=== PATIENT | female | born 1990 | race Caucasian/White ===

== ENCOUNTER → 2019-02-17 | Outpatient (CLI) | payer OTHER ==
[~2019-02-17] MED LIST: DOCU100C37 PO; IBUP-1780 PO; OXYC-465 PO; PNV91TAB3 PO
[2019-02-17 17:20] LABS: URINE CREATININE FOR RATIO 46 MG/DL (30-125); URINE PROTEIN FOR RATIO ONLY < 6 MG/DL (6-12)
== END ==
LOC: LABNPT 16:56
PROVIDERS: ATTEND Obstetrics & Gynecology
DX: O28.8 Other abnormal findings on antenatal screening of mother (principal)
CPT/HCPCS: 82570; 84156

== ENCOUNTER 2019-02-25 09:10 | Outpatient (CLI) | payer BC ==
[~2019-02-25] VITALS: Ht 167.6 cm; Wt 82.1 kg
[2019-02-25] MEDS ORDERED: PREN1TAB79 PO (09:20)
[2019-02-25] MEDS ORDERED: CETI10TA17 PO (09:20)
[2019-02-25] MEDS ORDERED: FLUT9.9S NS (09:20)
[2019-02-25 09:22] VITALS: BP 132/91
== END 2019-02-25 10:58 | disposition home or self-care (01) ==
LOC: PREOP 09:10
PROVIDERS: ATTEND Obstetrics & Gynecology
DX: Z01.818 Encounter for other preprocedural examination (principal)
CPT/HCPCS: 87081

== ENCOUNTER 2019-02-25 12:00 | Inpatient (IN) | payer BC, OTHER ==
[~2019-02-25] VITALS: Ht 167.6 cm; Wt 82.6 kg
[~2019-02-25 12:00] MED LIST changes: +CETI10TA17 PO; +FLUT9.9S NS; +PREN1TAB79 PO
[2019-03-04] VITALS (9 sets, daily range): BP systolic 100–138; BP diastolic 70–93
--- NOTE | 2019-03-04 10:09 | NUR ---
NOMAN IVY presented to unit via AMBULATORY from HOME, accompanied by S/O, with c/o REPEAT . NOMAN IVY weighed, gowned, voided, and to bed. EFHM and TOCO applied, VS taken. NOMAN IVY oriented to bed controls, call light, TV, heat, and A/C controls.
--- OUTSIDE RECORDS SUMMARY | 2019-03-04 10:39 | XMS REPORT | Continuity of Care Document ---
Author Organization Unknown Address Unknown Allergies Active Description Code Type Severity Reaction Onset Reported/Identified Relationship to Patient Clinical Status Yes NKANo Known Allergies NKA Miscellaneous Allergy Mild N/A 03/11/2006 Medications There is no data. Problems Date Dx Coded Attending Type Code Diagnosis Diagnosed By 02/29/2016 ANTHONY KIDD CUSTOMS VERIFIER Ot 789.00 ABDOMINAL PAIN, UNSPECIFIED SITE 02/29/2016 ANTHONY KIDD Ot 793.6 NOSP (ABN) FINDINGS ON RADIOLOGICAL OT 03/02/2016 HUMBERTO BANERJEE MD Ot O14.03 MILD TO MODERATE PRE-ECLAMPSIA, THIRD TR 03/22/2016 HUMBERTO BANERJEE MD Ot O14.03 MILD TO MODERATE PRE-ECLAMPSIA, THIRD TR 03/26/2016 HUMBERTO BANERJEE MD Ot O14.03 MILD TO MODERATE PRE-ECLAMPSIA, THIRD TR 03/27/2016 ANTHONY KIDD Ot 789.00 ABDOMINAL PAIN, UNSPECIFIED SITE 03/27/2016 ANTHONY KIDD Ot 793.6 NOSP (ABN) FINDINGS ON RADIOLOGICAL OT 03/27/2016 HUMBERTO BANERJEE MD Ot O14.03 MILD TO MODERATE PRE-ECLAMPSIA, THIRD TR 03/27/2016 HUMBERTO BANERJEE MD Ot O14.03 MILD TO MODERATE PRE-ECLAMPSIA, THIRD TR 03/28/2016 HUMBERTO BANERJEE MD Ot O28.8 OTHER ABNORMAL FINDINGS ON SCR 03/28/2016 HUMBERTO BANERJEE MD Ot Z3A.00 WEEKS OF GESTATION OF NOT SPEC 03/29/2016 HUMBERTO BANERJEE MD Ot O28.8 OTHER ABNORMAL FINDINGS ON SCR 03/29/2016 HUMBERTO BANERJEE MD, Ot Z3A.00 WEEKS OF GESTATION OF NOT SPEC 03/31/2016 HUMBERTO BANERJEE MD, Ot F41.9 ANXIETY DISORDER, UNSPECIFIED 03/31/2016 HUMBERTO BANERJEE MD, Ot O13.3 GESTATIONAL HTN W/O SIGNIFICANT PROTEINU 03/31/2016 HUMBERTO BANERJEE MD, Ot O32.4XX0 MATERNAL CARE FOR HIGH HEAD AT TERM, NOT 03/31/2016 HUMBERTO BANERJEE MD, Ot O63.0 PROLONGED FIRST STAGE (OF LABOR) 03/31/2016 HUMBERTO BANERJEE MD, Ot O65.4 OBSTRUCTED LABOR DUE TO FETOPELVIC DISPR 03/31/2016 HUMBERTO BANERJEE MD, Ot O99.345 OTHER MENTAL DISORDERS COMPLICATING THE 03/31/2016 HUMBERTO BANERJEE MD, Ot O99.824 STREPTOCOCCUS B CARRIER STATE COMPLICATI 03/31/2016 HUMBERTO BANERJEE MD, Ot Z37.0 SINGLE LIVE 03/31/2016 HUMBERTO BANERJEE MD, Ot Z3A.38 38 WEEKS GESTATION OF 04/11/2016 HUMBERTO BANERJEE MD, Ot O14.03 MILD TO MODERATE PRE-ECLAMPSIA, THIRD TR 04/17/2016 ANTHONY KIDD CUSTOMS VERIFIER Ot 789.00 ABDOMINAL PAIN, UNSPECIFIED SITE 04/17/2016 ANTHONY KIDD CUSTOMS VERIFIER Ot 793.6 NOSP (ABN) FINDINGS ON RADIOLOGICAL OT 04/17/2016 HUMBERTO BANERJEE MD, Ot O14.03 MILD TO MODERATE PRE-ECLAMPSIA, THIRD TR 04/17/2016 HUMBERTO BANERJEE MD, Ot O14.03 MILD TO MODERATE PRE-ECLAMPSIA, THIRD TR 04/17/2016 HUMBERTO BANERJEE MD, Ot O28.8 OTHER ABNORMAL FINDINGS ON SCR 04/17/2016 HUMBERTO BANERJEE MD, Ot Z3A.00 WEEKS OF GESTATION OF NOT SPEC 04/23/2016 HUMBERTO BANERJEE MD, Ot O28.8 OTHER ABNORMAL FINDINGS ON SCR 04/23/2016 HUMBERTO BANERJEE MD, Ot Z3A.00 WEEKS OF GESTATION OF NOT SPEC 04/26/2016 HUMBERTO BANERJEE MD, Ot O14.03 MILD TO MODERATE PRE-ECLAMPSIA, THIRD TR 06/04/2018 HUMBERTO BANERJEE MD, Ot O14.03 MILD TO MODERATE PRE-ECLAMPSIA, THIRD TR 06/04/2018 HUMBERTO BANERJEE MD, Ot O28.8 OTHER ABNORMAL FINDINGS ON SCR 06/04/2018 HUMBERTO BANERJEE MD, Ot Z3A.00 WEEKS OF GESTATION OF NOT SPEC 07/21/2018 VANLAMANTHONY KULKARNI M CUSTOMS VERIFIER Ot 789.00 ABDOMINAL PAIN, UNSPECIFIED SITE 07/21/2018 BENJY KIDDSA M CUSTOMS VERIFIER Ot 793.6 NOSP (ABN) FINDINGS ON RADIOLOGICAL OT 07/21/2018 HUMBERTO BANERJEE MD, Ot O14.03 MILD TO MODERATE PRE-ECLAMPSIA, THIRD TR 02/18/2019 HUMBERTO BANERJEE MD, Ot O28.8 OTHER ABNORMAL FINDINGS ON SCR 02/20/2019 HUMBERTO BANERJEE MD, Ot O28.8 OTHER ABNORMAL FINDINGS ON SCR 02/25/2019 HUMBERTO BANERJEE MD, Ot O14.03 MILD TO MODERATE PRE-ECLAMPSIA, THIRD TR 02/25/2019 HUMBERTO BANERJEE MD, Ot O28.8 OTHER ABNORMAL FINDINGS ON SCR 02/25/2019 HUMBERTO BANERJEE MD, Ot Z3A.00 WEEKS OF GESTATION OF NOT SPEC 02/25/2019 HUMBERTO BANERJEE MD, Ot O28.8 OTHER ABNORMAL FINDINGS ON SCR 03/02/2019 HUMBERTO BANERJEE MD, Ot Z01.818 ENCOUNTER FOR OTHER PREPROCEDURAL EXAMIN Procedures Code Description Performed By Performed On [id number] EXTRACTION OF POC, LOW CERVICAL, OPEN AP 03/29/2016 Results Test Result Range Urine protein/creatinine mass ratio - 03/23/16 09:33 Urine protein measurement (mass/volume) < mg/dL 6-12 Urine creatinine measurement (mass/volume) 39 mg/dL 30-125 Urine protein/creatinine mass ratio TNP NRG Urine protein/creatinine mass ratio - 03/27/16 14:44 Urine protein measurement (mass/volume) < mg/dL 6-12 Urine creatinine measurement (mass/volume) 24 mg/dL 30-125 Urine protein/creatinine mass ratio TNP [facility] [id number] - 03/27/16 15:35 [id number] SPECIMEN AVAILABLE [facility] Complete blood count (CBC) with automated white blood cell (WBC) differential - 03/29/16 15:20 Blood leukocytes automated count (number/volume) 19.2 10*3/uL 4.3-11.0 Blood erythrocytes automated count (number/volume) 3.35 10*6/uL 4.35-5.85 Venous blood hemoglobin measurement (mass/volume) 9.7 g/dL 11.5-16.0 Blood hematocrit (volume fraction) 28 % 35-52 Automated erythrocyte mean corpuscular volume 84 [foz_us] 80-99 Automated erythrocyte mean corpuscular hemoglobin (mass per erythrocyte) 29 pg 25-34 Automated erythrocyte mean corpuscular hemoglobin concentration measurement (mass/volume) 35 g/dL 32-36 Automated erythrocyte distribution width ratio 13.3 % 10.0- 14.5 Automated blood platelet count (count/volume) 190 10*3/uL 130-400 Automated blood platelet mean volume measurement 9.5 [foz_us] 7.4-10.4 Automated blood neutrophils/100 leukocytes 81 % 42-75 Automated blood lymphocytes/100 leukocytes 7 % 12-44 Blood monocytes/100 leukocytes 12 % 0-12 Automated blood eosinophils/100 leukocytes 0 % 0-10 Automated blood basophils/100 leukocytes 0 % 0-10 Blood neutrophils automated count (number/volume) 15.5 10*3 1.8-7.8 Blood lymphocytes automated count (number/volume) 1.4 10*3 1.0-4.0 Blood monocytes automated count (number/volume) 2.3 10*3 0.0- 1.0 Automated eosinophil count 0.0 10*3/uL 0.0-0.3 Automated blood basophil count (count/volume) 0.0 10*3/uL 0.0-0.1 Comprehensive metabolic panel - 03/29/16 15:20 Serum or plasma sodium measurement (moles/volume) 136 mmol/L 135-145 Serum or plasma potassium measurement (moles/volume) 4.0 mmol/L 3.6-5.0 Serum or plasma chloride measurement (moles/volume) 108 mmol/L 98-107 Carbon dioxide 25 mmol/L 21-32 Serum or plasma anion gap determination (moles/volume) 3 mmol/L 5-14 Serum or plasma urea nitrogen measurement (mass/volume) 4 mg/dL 7-18 Serum or plasma creatinine measurement (mass/volume) 0.61 mg/dL 0.60-1.30 Serum or plasma urea nitrogen/creatinine mass ratio 7 NRG Serum or plasma creatinine measurement with calculation of estimated glomerular filtration rate > NRG Serum or plasma glucose measurement (mass/volume) 96 mg/dL 70-105 Serum or plasma calcium measurement (mass/volume) 8.1 mg/dL 8.5-10.1 Serum or plasma total bilirubin measurement (mass/volume) 0.3 mg/dL 0.1-1.0 Serum or plasma alkaline phosphatase measurement (enzymatic activity/volume) 109 U/L 40-136 Serum or plasma aspartate aminotransferase measurement (enzymatic activity/volume) 55 U/L 5-34 Serum or plasma alanine aminotransferase measurement (enzymatic activity/volume) 26 U/L 0-55 Serum or plasma protein measurement (mass/volume) 4.9 g/dL 6.4-8.2 Serum or plasma albumin measurement (mass/volume) 2.7 g/dL 3.2-4.5 Blood manual differential performed detection - 03/29/16 15:20 Blood monocytes/100 leukocytes 2 % NRG Manual blood segmented neutrophils/100 leukocytes 82 % NRG Blood band neutrophils/100 leukocytes 2 % NRG Manual blood lymphocytes/100 leukocytes 14 % NRG Manual eosinophils/100 leukocytes in nose 0 % NRG Manual blood basophils/100 leukocytes 0 % NRG Blood ovalocytes detection by light microscopy SLIGHT NRG Urine protein/creatinine mass ratio - 02/17/19 16:37 Urine protein measurement (mass/volume) < mg/dL 6-12 Urine creatinine measurement (mass/volume) 46 mg/dL 30-125 Urine protein/creatinine mass ratio TNP NRG Methicillin resistant Staphylococcus aureus (MRSA) screening culture - 02/25/19 10:00 Methicillin resistant Staphylococcus aureus (MRSA) screening culture NEG NRG Encounters ACCT No. Visit Date/Time Discharge Status Pt. Type Provider Facility Loc./Unit Complaint [id number] 02/25/2019 12:00:00 02/25/2019 23:59:59 CLS Preadmit LAVONNE GARCIA, HUMBERTO Stark REPEAT [id number] 02/25/2019 09:10:00 02/25/2019 10:58:00 DIS Outpatient HUMBERTO BANERJEE MD [facility] PREOP REPEAT [id number] 02/17/2019 16:56:00 02/17/2019 23:59:59 CLS Outpatient HUMBERTO BANERJEE MD [facility] LABNPT [id number] 06/10/2018 09:00:00 06/10/2018 23:59:59 CLS Preadmit JEREMIAS GARCIA FACC, ALI FACP CCDS [facility] CARD PALPITATIONS [id number] 06/03/2018 08:30:00 06/03/2018 23:59:59 CLS Preadmit JEREMIAS GARCIA FACC, ALI FACP CCDS [facility] CARD PALPITATIONS [id number] 03/27/2016 15:23:00 03/31/2016 12:45:00 DIS Inpatient HUMBERTO BANERJEE MD [facility] LDRP ELEVATED BLOOD PRESSURE,LABOR [id number] 03/27/2016 15:11:00 03/27/2016 23:59:59 CLS Outpatient HUMBERTO BANERJEE MD [facility] LABT OTHER ABNORMAL FINDINGS ON SCREENING [id number] 03/23/2016 10:36:00 03/23/2016 23:59:59 CLS Outpatient HUMBERTO BANERJEE MD [facility] LABNPT MILD TO MODERATE PRE ECLAMPSIA, THIRD TRIMESTER [id number] 02/29/2016 10:48:00 02/29/2016 23:59:59 CLS Outpatient HUMBERTO BANERJEE MD [facility] LABNPT MILD TO MODERATE PRE ECLAMPSIA, THIRD TRIMESTER [id number] 11/17/2013 12:01:00 11/17/2013 23:59:59 CLS Outpatient ANTHONY KIDD [facility] RAD ABD PAIN, ACUTE
[2019-03-04] MEDS ORDERED: LACTATED RINGERS 1,000 ML IV ONE (10:42)
[2019-03-04] MEDS ORDERED: FAMOTIDINE 20MG/2ML IV (PEPCID) ONE (10:42)
[2019-03-04] MEDS ORDERED: CITRIC ACID/SOB CIT (BICITRA) 30 ML UDC ONE (10:42)
[2019-03-04] MEDS ORDERED: METOCLOPRAMIDE INJ 10 MG/2 ML (REGLAN) ONE (10:42)
[2019-03-04] MEDS ORDERED: metroNIDAZOLE 500MG/100ML IVPB 100 ML ONE (10:43)
[2019-03-04] MEDS ORDERED: METOCLOPRAMIDE INJ 10 MG/2 ML (REGLAN) IV ONE (10:45)
[2019-03-04] MEDS ORDERED: CITRIC ACID/SOB CIT (BICITRA) 30 ML UDC PO ONE (10:45)
[2019-03-04] MEDS ORDERED: ceFAZolin INJECTION 2,000 MG in WATER (STERILE) FOR INJECTION 10 ML IV NR (10:45)
[2019-03-04] MEDS ORDERED: CATHETER FLUSH 10 ML SYR IV PRN (10:45)
[2019-03-04] MEDS ORDERED: FAMOTIDINE 20MG/2ML IV (PEPCID) IV ONE (10:45)
[2019-03-04] MEDS ORDERED: metroNIDAZOLE 500MG/100ML IVPB 100 ML IV NR (10:45)
[2019-03-04 10:51] LABS: BASOPHILS % (AUTO) 0 % (0-10); EOSINOPHILS # (AUTO) 0.1 10^3/uL (0.0-0.3); EOSINOPHILS % (AUTO) 1 % (0-10); HEMATOCRIT 35 % (35-52); HEMOGLOBIN 12.1 G/DL (11.5-16.0); LYMPHOCYTES # (AUTO) 1.5 X 10^3 (1.0-4.0); LYMPHOCYTES % (AUTO) 15 % (12-44); MEAN CORPUSCULAR HEMOGLOBIN 29 PG (25-34); MEAN CORPUSCULAR HGB CONC 34 G/DL (32-36); MEAN CORPUSCULAR VOLUME 84 FL (80-99); MEAN PLATELET VOLUME 10.4 FL (7.4-10.4); MONOCYTES # (AUTO) 0.9 X 10^3 (0.0-1.0); MONOCYTES % (AUTO) 9 % (0-12); NEUTROPHILS # (AUTO) 7.4 X 10^3 (1.8-7.8); NEUTROPHILS % (AUTO) 75 % (42-75); PLATELET COUNT 228 10^3/uL (130-400); RED CELL DISTRIBUTION WIDTH 12.9 % (10.0-14.5); WHITE BLOOD COUNT 9.8 10^3/uL (4.3-11.0)
[2019-03-04] MEDS: LACTATED RINGERS 1,000 ML IV PRN ×2 (10:53→11:40)
[2019-03-04] MEDS ORDERED: OXYTOCIN/NORMAL SALINE 1,000 ML IV ONE (11:50)
[2019-03-04] MEDS ORDERED: fentaNYL INJECTION 100 MCG/2 ML AMP ONE (11:51)
--- NOTE | 2019-03-04 12:13 | NUR ---
REFER TO LABOR FLOW SHEET.
[2019-03-04] MEDS ORDERED: BUPIVACAINE 0.5% 30 ML (SENSORCAINE) VIAL ONE (13:30)
[2019-03-04] MEDS ORDERED: OXYTOCIN/NORMAL SALINE 500 ML IV ONE (14:12)
--- NOTE | 2019-03-04 14:25 | NUR ---
PT TRANSFERRED FROM [facility] TO [facility] VIA BED IN STABLE CONDITION ACC BY THIS RN, AND Mirza DENISE RN. SCDS ON CALVES BILATERALLY. TEACHING DONE RE: ROOM SURROUNDINGS AND POC. OR TUBING CONVERTED TO PUMP TUBING, PITOCIN INFUSING @ 125 ML/HR/PUMP. FRESH ICE WATER PROVIDED. NO NEEDS OR QUESTIONS VOICED. CALL LIGHT WITHIN REACH.
[2019-03-04] MEDS ORDERED: D5 LR IV SOLUTION 1,000 ML IV SCH (14:26)
[2019-03-04] MEDS ORDERED: OXYTOCIN/NORMAL SALINE 500 ML IV SCH (14:26)
[2019-03-04] MEDS ORDERED: TETANUS,DIPTH,PERTUSS P/F (BOOSTRIX) 0.5 ML VIAL IM ONE (14:30)
[2019-03-04] MEDS ORDERED: ONDANSETRON 4 MG/2 ML (SDV) Z0FRAN IVP PRN (14:30)
[2019-03-04] MEDS ORDERED: MEASLES,MUMPS,RUBELLA 1 EA INJ SC ONE (14:30)
[2019-03-04] MEDS: KETOROLAC 30 MG/ML VIAL IVP PRN ×2 (15:05→20:16)
--- NOTE | 2019-03-04 15:05 | NUR ---
PT IN BED, HOLDING . S/O AND MOTHER AT THE BEDSIDE. VS OBTAINED. TORADOL GIVEN IVP; SEE EMAR FOR FURTHER. NO NEEDS VOICED AT THIS TIME.
--- NOTE | 2019-03-04 16:37 | HISTORY AND PHYSICAL ---
DATE OF SERVICE: HISTORY OF PRESENT ILLNESS: The patient is a 28-year-old , 1, white female admitted on this date for repeat delivery at 39 weeks' gestation. The patient's has been uncomplicated. Her GBS culture was negative. She did have a lesion removed from her left calf during this that was a melanoma and she had a reexcision for a wider margin with complete excision of the lesion. She is under follow up from Oncology for her melanoma. The patient denies rupture of membranes or bleeding. She has had no problems with this . ALLERGIES: None. MEDICATIONS: vitamins. PAST MEDICAL HISTORY: Per the antepartum record. SOCIAL HISTORY: Per the antepartum record. PAST SURGICAL HISTORY: Per the antepartum record. PHYSICAL EXAMINATION: HEENT: Normal. NECK: Supple, no lymphadenopathy, no thyromegaly. ABDOMEN: Gravid, soft, nontender, nondistended. EXTREMITIES: Show no clubbing or cyanosis. There is no Homans sign. PELVIC EXAM: Deferred. ASSESSMENT AND PLAN: A 39 plus week gestation in a patient with previous section, admitted now for repeat delivery. Surgical risks, complications recovery and follow up have been fully discussed. The patient is ready to proceed with repeat . Job ID: [id number] DocumentID: [id number] Dictated Date: 03/04/2019 12:08:57 Cargo Services Coordinator Date: 03/04/2019 16:36:27 Dictated By: HUMBERTO BANERJEE MD
[2019-03-04] MEDS: oxyCODONE/APAP 10/325MG (PERCOCET 10) TABLET PO PRN (16:40)
--- NOTE | 2019-03-04 16:40 | NUR ---
PT IN BED, VISITING WITH FRIEND. VS OBTAINED. PT RATING PAIN 4/10. PAIN MEDICATION OFFERED, PT WOULD LIKE TO ONLY TAKE HALF A PILL. PERCOCET GIVEN PO; SEE EMAR FOR FURTHER. NO FURTHER NEEDS VOICED, CALL LIGHT WITHIN REACH.
--- NOTE | 2019-03-04 17:38 | OPERATIVE REPORT ---
DATE OF SERVICE: 03/04/2019 PREOPERATIVE DIAGNOSIS: Term at 39 weeks' gestation, previous . POSTOPERATIVE DIAGNOSIS: Term at 39 weeks' gestation, previous . OPERATIVE PROCEDURE: Repeat low transverse delivery of a viable male infant with Apgars of 8 and 9 at 1 and 5 minutes respectively. Weight is 7 pounds 15 ounces. time of 12:40. The infant was vigorous on delivery. OPERATIVE DESCRIPTION: With the patient in the supine position under satisfactory spinal analgesia, she was prepped and draped in the usual fashion for abdominal surgery. Razo catheter was placed in the urinary bladder. A repeat Pfannenstiel incision was made through skin with a scalpel by removing the patient's previous Pfannenstiel incisional scar. The abdomen was entered in the usual manner. Bladder retractor placed in position, clean scalpel used to make a 4 cm hysterotomy incision transversely across the lower uterine segment that was extended by blunt dissection as well. A small amount of clear fluid was released on hysterotomy. Youssef forceps were applied to facilitate the delivery of a vigorous viable male infant. The had Apgars and stats as noted above. The was bulb suctioned on delivery of the head and nuchal cord was easily released and then the delivery completed. The infant was bulb suctioned again as the umbilical cord is doubly clamped and cut. The was passed to the pediatric nurse in attendance for delivery. The patient had requested cord blood banking, therefore we bypassed obtaining cord bloods. We removed the placenta as atraumatically as possible and passed the placenta from the field for cord blood collection. The uterus was exteriorized, interior wiped clean with a wet laparotomy sponge. Uterine incision closed with a running locked suture of 2-0 Vicryl. Hemostasis was complete. The uterus was returned to abdominal cavity. All blood clot and debris removed from the abdominal cavity. With sponge, needle counts correct, hemostasis assured. The anterior parietal peritoneum was closed with running suture of 2-0 Vicryl. Rectus muscles were closed with that suture as well. The rectus fascia was closed with 2-0 Vicryl, subcutaneous tissue was closed with 2-0 Vicryl and the skin was stapled. Sponge and needle counts were correct on completion of the procedure. Estimated blood loss was around 500 mL. The patient tolerated the procedure well and was transferred to the recovery room in stable condition. The baby had remained with the mom. Job ID: [id number] DocumentID: [id number] Dictated Date: 03/04/2019 13:03:10 Mortician Helper Date: 03/04/2019 17:38:20 Dictated By: HUMBERTO BANERJEE MD
--- NOTE | 2019-03-04 17:50 | NUR ---
PT ASSISTED UP TO THE BATHROOM. + VOID, + PERICARE PER PT. NEW PAD AND PANTIES ON. NEW GOWN. PT BACK TO BED, STEADY ON HER FEET. SCDS ON CALVES BILATERALLY. SOCKS REMOVED PER REQUEST. NO FURTHER NEEDS VOICED. S/O BACK TO PT'S BEDSIDE.
--- NOTE | 2019-03-04 18:30 | NUR ---
PITOCIN INFUSION COMPLETE. LITER OF LR FROM SURGERY HUNG AND INFUSING @ 125 ML/HR/PUMP. PT . NO NEEDS VOICED.
[2019-03-04] MEDS: D5 LR IV SOLUTION 1,000 ML IV SCH ×2 (18:38→20:16)
--- NOTE | 2019-03-04 18:41 | NUR ---
PT VOICES THAT SHE HAS ALREADY RECEIVED THE TDAP VACCINE AT [facility].
[2019-03-04] MEDS: DOCUSATE SODIUM 100 MG (COLACE) CAP PO SCH (20:16)
[2019-03-04] MEDS ORDERED: SIMETHICONE 80 MG (MYLICON) CHEW ONE (20:23)
[2019-03-04] MEDS: SIMETHICONE 80 MG (MYLICON) CHEW PO PRN (20:25)
[2019-03-04] MEDS ORDERED: DOCUSATE SODIUM 100 MG (COLACE) CAP PO SCH (21:00)
[2019-03-05 00:06] VITALS: BP 129/85
[2019-03-05] MEDS: oxyCODONE/APAP 10/325MG (PERCOCET 10) TABLET PO PRN ×3 (00:06→13:30)
[2019-03-05] MEDS: KETOROLAC 30 MG/ML VIAL IVP PRN (03:17)
[2019-03-05 04:00] VITALS: BP 123/78
--- NOTE | 2019-03-05 07:24 | Anesthesia-General Post-Op ---
General Patient Condition Mental Status/LOC: Same as Preop Cardiovascular: Satisfactory Nausea/Vomiting: Absent Respiratory: Satisfactory Pain: Controlled Complications: Absent Post Op Complications Complications None Follow Up Care/Instructions Patient Instructions None needed. Anesthesia/Patient Condition Patient Condition Patient is doing well, no complaints, stable vital signs, no apparent adverse anesthesia problems. No complications reported per nursing. HARLEEN KAY CRNA Mar 05, 2019 07:24
[2019-03-05 07:32] VITALS: BP 131/88
--- NOTE | 2019-03-05 07:35 | NUR ---
PT IN BED, HOLDING . VS OBTAINED. INITIAL SHIFT ASSESSMENT COMPLETED; SEE INTERVENTION FOR FURTHER. DR. BANERJEE TO PT'S BEDSIDE.
--- NOTE | 2019-03-05 07:44 | Progress Note ---
Standard Progress Note Progress Notes/Assess & Plan Date Seen by a Provider: Mar 05, 2019 Time Seen by a Provider: 07:43 Progress/Assessment & Plan This patient without complaint. She is a relating, voiding, tolerating oral intake well and has good pain control. She does complain of some right shoulder pain that is intermittent and at times exacerbated by nursing. Vital Signs 03/05/19 04:00 Temp 97.7 Pulse 97 Resp 18 B/P (MAP) 123/78 (93) Pulse Ox 97 O2 Delivery Room Air Vital signs are stable. Patient is afebrile. The abdomen is benign. Surgical incision is clean dry and intact. Extremities show no clubbing cyanosis. No Homans sign. Assessment and plan postoperative day 1 status post repeat delivery doing well. Plan is for routine convalescence care HUMBERTO BANERJEE MD Mar 05, 2019 07:44
[2019-03-05] MEDS ORDERED: IBUPROFEN 800 MG (MOTRIN) TAB PO ONE (09:21)
[2019-03-05] MEDS: SIMETHICONE 80 MG (MYLICON) CHEW PO PRN (09:27)
[2019-03-05] MEDS: HYDROCORTISONE 2.5% CREAM (ANUSOL-HC) 30 GM TOP SCH ×2 (09:28→20:30)
[2019-03-05] MEDS: IBUPROFEN 800 MG (MOTRIN) TAB PO SCH ×2 (09:28→18:23)
[2019-03-05] MEDS: DOCUSATE SODIUM 100 MG (COLACE) CAP PO SCH ×2 (09:29→20:30)
--- NOTE | 2019-03-05 09:30 | NUR ---
PT SITTING UP ON THE SIDE OF THE BED, MEDS GIVEN; SEE EMAR FOR FURTHER. IV DC'D. CATHETER TIP INTACT. GAUZE AND BAND AID APPLIED OVER SITE. S/O AT THE BEDSIDE. SHOWER SET UP. NO NEEDS VOICED AT THIS TIME.
--- NOTE | 2019-03-05 12:25 | NUR ---
DR. BANERJEE TO PT'S BEDSIDE FOR ROUNDING. NO NEW ORDERS RECEIVED. VOICES THAT PT IS STILL C/O RIGHT SHOULDER PAIN BUT STILL "HAS A SMILE ON HER FACE".
[2019-03-05] MEDS ORDERED: OXYC1TAB12 PO (12:30)
[2019-03-05] MEDS ORDERED: IBUP-1780 PO (12:30)
[2019-03-05] MEDS ORDERED: DOCU100C37 PO (12:30)
--- NOTE | 2019-03-05 12:31 | Discharge Instructions ---
Discharge Instructions Discharge Medications New, Converted or Re-Newed RX: RX on Chart Patient Instructions Patient Instructions: As directed Return to The Hospital For: DIRECTED Activity & Diet Discharge Diet: No Restrictions Activity as Tolerated: No Orders-Post D/C & Referrals Follow Up Appt: RTC 1 week for incision check. Call to make follow up appt. for patient in 4 weeks. Wound Care: Remove lela, apply benzoin and steri strips. Activity Per routine post instructions. Please call in RX to patient pharmacy. Diet as tolerated Patient may shower or tub bathe as desired. Continue home meds HUMBERTO BANERJEE MD Mar 05, 2019 12:31
[2019-03-05 13:30] VITALS: BP 120/79
--- NOTE | 2019-03-05 15:40 | NUR ---
PT UP IN ROOM, FAMILY LEAVING. PT VOICES THAT DR. COFFMAN CAME TO SEE HER, DISCUSSED RIGHT SHOULDER PAIN. NO NEEDS VOICED AT THIS TIME.
[2019-03-05 18:26] VITALS: BP 131/86
--- NOTE | 2019-03-05 18:30 | NUR ---
ROUTINE MOTRIN GIVEN PO; SEE EMAR FOR FURTHER. VS OBTAINED. PT AT THIS TIME. NO NEEDS VOICED.
[2019-03-06 00:05] VITALS: BP 137/89
[2019-03-06] MEDS: IBUPROFEN 800 MG (MOTRIN) TAB PO SCH (00:05)
[2019-03-06 06:45] VITALS: BP 126/89
--- NOTE | 2019-03-06 07:40 | NUR ---
DR. BANERJEE TO PT'S BEDSIDE.
--- NOTE | 2019-03-06 07:55 | Progress Note ---
Standard Progress Note Progress Notes/Assess & Plan Date Seen by a Provider: Mar 06, 2019 Time Seen by a Provider: 07:54 Progress/Assessment & Plan This patient without complaint. She is a relating, voiding, tolerating oral intake well and has good pain control. She does complain of some right shoulder pain that is intermittent and at times exacerbated by nursing. Vital Signs 03/05/19 04:00 Temp 97.7 Pulse 97 Resp 18 B/P (MAP) 123/78 (93) Pulse Ox 97 O2 Delivery Room Air Vital signs are stable. Patient is afebrile. The abdomen is benign. Surgical incision is clean dry and intact. Extremities show no clubbing cyanosis. No Homans sign. Assessment and plan postoperative day 1 status post repeat delivery doing well. Plan is for routine convalescence care March 06, 2019 Patient without complaint. She is ambulating, voiding, tolerating oral intake well has good pain control. Patient denies chest pain, denies shortness of breath, denies nausea vomiting, and denies headache. Patient is requesting discharge home. Vital Signs 03/06/19 06:45 Temp 98.1 Pulse 78 Resp 18 B/P (MAP) 126/89 (101) Pulse Ox 98 O2 Delivery Room Air Vital signs are stable. Patient is afebrile. The abdomen is benign. The surgical incision is clean dry and intact. The fundus is firm below the umbilicus and nontender. Extremities show no clubbing cyanosis. There is no Homans sign. Assessment and plan post operative day number 2 status post repeat delivery doing well. Plan is for discharge home with follow-up in clinic Final Diagnosis 39 week repeat delivery HUMBERTO BANERJEE MD Mar 06, 2019 07:55
[2019-03-06] MEDS: DOCUSATE SODIUM 100 MG (COLACE) CAP PO SCH (08:18)
[2019-03-06] MEDS: HYDROCORTISONE 2.5% CREAM (ANUSOL-HC) 30 GM TOP SCH (08:19)
--- NOTE | 2019-03-06 08:22 | NUR ---
MEDS GIVEN; SEE EMAR FOR FURTHER. INITIAL SHIFT ASSESSMENT COMPLETED; SEE INTERVENTION FOR FURTHER. PLANNING FOR DISCHARGE. NO NEEDS VOICED.
--- NOTE | 2019-03-06 09:05 | NUR ---
CAR REMOVED. STERI STRIPS APPLIED. INCISION REMAINS INTACT, NO DRAINAGE NOTED. PT TOLERATED WELL.
--- NOTE | 2019-03-06 09:40 | NUR ---
DISCHARGE PAPERS PROVIDED AND REVIEWED WITH PT, PT VERBALIZES UNDERSTANDING AND DENIES ANY QUESTIONS OR NEEDS AT THIS TIME. PAPER SIGNED.
--- NOTE | 2019-03-06 11:03 | NUR ---
RX- X2 CALLED INTO [facility], SPOKE WITH [place] PHARMACIST.
--- NOTE | 2019-03-06 11:05 | NUR ---
PT DISCHARGED FROM -308 TO [facility] VIA AMBULATORY IN STABLE CONDITION ACC BY S/O, AND Elma RICK RN.
== END 2019-03-06 11:05 | disposition home or self-care (01) | DRG 788 ==
LOC: LDRP 03-04 10:17
PROVIDERS: ADMIT Obstetrics & Gynecology; ATTEND Obstetrics & Gynecology
PROC: 10D00Z1 Extraction of Products of Conception, Low, Open Approach (ICD-10-PCS; principal; 2019-03-04 12:16)
DX: O34.211 Maternal care for low transverse scar from previous cesarean delivery (principal); Z85.820 Personal history of malignant melanoma of skin; Z37.0 Single live birth; Z3A.39 39 weeks gestation of pregnancy
CPT/HCPCS: 36415; 85025; 86850; 86900; 86901; 94664

== ENCOUNTER → 2020-05-16 | Outpatient (CLI) | payer BC ==
[~2020-05-16] MED LIST changes: -OXYC-465 PO; +OXYC-556 PO; +OXYC1TAB12 PO
--- NOTE | 2020-05-16 12:20 | Diagnostic Imaging Report ---
PROCEDURE: US Thyroid. TECHNIQUE: Multiple real-time grayscale images were obtained of the thyroid in various projections. INDICATION: Thyromegaly. Right lobe of thyroid measures 4.4 x 1.2 x 1.4 cm and the left lobe measures 4.2 x 1.4 x 1.4 cm. Isthmus is 2 mm in thickness. Both lobes appear to be fairly homogeneous. It is s tiny hypoechoic nodule right lobe measuring 3 mm. No dominant thyroid mass is detected. An area underneath the patient's chin was evaluated due to the palpable abnormality. There is a hypoechoic nodule measuring 1.9 x 0.8 x 2.6 cm which may represent a lymph node. No other abnormalities are seen. IMPRESSION: 1. Unremarkable thyroid ultrasound. 2. Probable sub-mandibular lymph node. CT soft tissue neck with IV contrast would be useful for further characterization if this persists. Dictated by: Dictated on workstation # [id number]
== END ==
LOC: RAD 10:00
PROVIDERS: ATTEND Nurse Practitioner Family
DX: E01.0 Iodine-deficiency related diffuse (endemic) goiter (principal)
CPT/HCPCS: 76536

== ENCOUNTER → 2020-05-23 | Outpatient (CLI) | payer BC ==
[~2020-05-23] MED LIST changes: +CATHETER FLUSH 10 ML SYR IV PRN; +HOLD METFORMIN - RECEIVED CONTRAST 20 ML VIAL IV SCH; +IOHEXOL 350 MG/ML 100 ML (OMNIPAQUE 350) VIAL IV ONE; +NS 100 ML (IVPB) BAG IV ONE
--- NOTE | 2020-05-23 14:51 | Diagnostic Imaging Report ---
PROCEDURE: CT neck soft tissue with contrast. TECHNIQUE: Multiple contiguous axial images were obtained through the neck after the administration of contrast. Auto Exposure Controls were utilized during the CT exam to meet ALARA standards for radiation dose reduction. INDICATION: Submandibular mass and thyromegaly. FINDINGS: There are no prior CT neck examinations available for comparison. The recent thyroid ultrasound exam of 05/16/2020 failed to show any abnormality of the thyroid gland. However, there was a question of a submandibular lymph node measuring 1.9 x 0.8 x 2.6 cm. On this exam, there is a small oval soft tissue density in the submandibular area just to the left of midline. This measures 0.9 x 1.2 cm. Just anterior to this nodule and just to the right of midline, there is an even smaller 0.6 x 0.9 cm nodule. I do suspect that these are lymph nodes. There is no distortion of the fat in this area to suggest an acute inflammatory/infectious process. There is no other mass or adenopathy identified. There are a few small lymph nodes on each side of the neck. These are not pathologically enlarged. The submandibular glands appear symmetrical. The thyroid gland is homogeneous and not enlarged. The tracheal air shadow is not compressed or deviated. The lung apices are clear. The bone windows show no sign of a fracture or of a destructive lesion. There is mild reversal of the normal lordosis of the cervical spine. This may be secondary to muscle spasm and/or positioning. The intracranial contents where visualized are unremarkable. IMPRESSION: 1. There are small lymph nodes in the submandibular area. These nodes are not enlarged and have a generally benign appearance. 2. No other mass or adenopathy is noted. 3. The submandibular glands and the thyroid gland are unremarkable. Dictated by: Dictated on workstation # [id number]
== END ==
LOC: RAD 13:45
PROVIDERS: ATTEND Nurse Practitioner Family
DX: E01.0 Iodine-deficiency related diffuse (endemic) goiter (principal); R22.0 Localized swelling, mass and lump, head
CPT/HCPCS: 70491

== ENCOUNTER → 2022-11-20 | Outpatient (CLI) | payer BC ==
[~2022-11-20] MED LIST changes: -CATHETER FLUSH 10 ML SYR IV PRN; -HOLD METFORMIN - RECEIVED CONTRAST 20 ML VIAL IV SCH; -IOHEXOL 350 MG/ML 100 ML (OMNIPAQUE 350) VIAL IV ONE; -NS 100 ML (IVPB) BAG IV ONE
[2022-11-20 14:02] LABS: BASOPHILS % (AUTO) 0 % (0-10); EOSINOPHILS # (AUTO) 0.1 10^3/uL (0.0-0.3); EOSINOPHILS % (AUTO) 1 % (0-10); HEMATOCRIT 42 % (35-52); HEMOGLOBIN 14.7 g/dL (11.5-16.0); LYMPHOCYTES # (AUTO) 1.5 10^3/uL (1.0-4.0); LYMPHOCYTES % (AUTO) 18 % (12-44); MEAN CORPUSCULAR HEMOGLOBIN 30 pg (25-34); MEAN CORPUSCULAR HGB CONC 35 g/dL (32-36); MEAN CORPUSCULAR VOLUME 88 fL (80-99); MEAN PLATELET VOLUME 9.5 fL (9.0-12.2); MONOCYTES # (AUTO) 0.6 10^3/uL (0.0-1.0); MONOCYTES % (AUTO) 7 % (0-12); NEUTROPHILS # (AUTO) 5.9 10^3/uL (1.8-7.8); NEUTROPHILS % (AUTO) 73 % (42-75); PLATELET COUNT 190 10^3/uL (130-400); WHITE BLOOD COUNT 8.1 10^3/uL (4.3-11.0)
[2022-11-20 14:17] LABS: ERYTHROCYTE SEDIMENTATION RATE 4 MM/HR (0-20)
[2022-11-20 17:23] LABS: CHLORIDE 104 MMOL/L (98-107); POTASSIUM 3.7 MMOL/L (3.6-5.0); SODIUM 138 MMOL/L (135-145)
[2022-11-20 17:24] LABS: CALCIUM 9.8 MG/DL (8.5-10.1)
[2022-11-20 17:25] LABS: GLUCOSE 77 MG/DL (70-105); TOTAL PROTEIN 8.2 GM/DL (6.4-8.2)
[2022-11-20 17:26] LABS: CARBON DIOXIDE 23 MMOL/L (21-32)
[2022-11-20 17:27] LABS: BILIRUBIN,TOTAL 0.7 MG/DL (0.1-1.0)
[2022-11-20 17:28] LABS: ALKALINE PHOSPHATASE 59 U/L (40-136)
[2022-11-20 17:29] LABS: CREATININE SERUM 0.79 MG/DL (0.60-1.30); GFR ESTIMATED 101
[2022-11-20 17:30] LABS: BUN/CREATININE RATIO 15
[2022-11-20 17:32] LABS: ALANINE AMINOTRANSFERASE 18 U/L (0-55)
== END ==
LOC: LAB 13:35
PROVIDERS: ATTEND Nurse Practitioner Family
DX: I82.B19 Acute embolism and thrombosis of unspecified subclavian vein (principal); M79.601 Pain in right arm; M79.89 Other specified soft tissue disorders
CPT/HCPCS: 36415; 80053; 85025; 85379; 85652

== ENCOUNTER → 2022-11-21 | Outpatient (CLI) | payer BC ==
[~2022-11-21] MED LIST changes: +HOLD METFORMIN - RECEIVED CONTRAST 20 ML VIAL IV SCH; +IOHEXOL 350 MG/ML 100 ML (OMNIPAQUE 350) VIAL IV ONE; +NS 100 ML (IVPB) BAG IV ONE
--- NOTE | 2022-11-21 11:09 | Diagnostic Imaging Report ---
PROCEDURE: CT angiography of the chest with contrast. TECHNIQUE: Multiple contiguous axial images were obtained through the chest after uneventful bolus administration of intravenous contrast. 3D reconstructed CTA MIP acquisitions were also performed. Auto Exposure Controls were utilized during the CT exam to meet ALARA standards for radiation dose reduction. INDICATION: I82.B19, right shoulder pain and swelling, recent abnormal ultrasound demonstrating embolism COMPARISON: None available FINDINGS: No significant adenopathy within the chest. No aneurysm or dissection involving the thoracic aorta. No focal filling defect within the bilateral subclavian arteries. The left subclavian vein appears patent, though there is narrowing noted at the level of the junction of the left clavicle and anterior left 1st rib. The right subclavian vein is not well evaluated as no significant contrast is seen at this location. The heart is within normal limits in size. No significant pericardial effusion. No pleural effusion. The trachea is patent. No pneumothorax. The lungs are clear. No saddle pulmonary embolus. The visualized upper abdomen is unremarkable. No acute osseous abnormality. IMPRESSION: No significant filling defect within the bilateral subclavian arteries. The right subclavian vein is not well visualized secondary to contrast bolus timing. If there is clinical concern for the right subclavian vein, then ultrasound versus conventional venography would be recommended. The left subclavian vein is patent, though there is narrowing at the junction of the left clavicle and left anterior 1st rib. Additional findings as above. Dictated by: Dictated on workstation # [id number]
== END ==
LOC: RAD 10:15
PROVIDERS: ATTEND Nurse Practitioner Family
DX: I82.B19 Acute embolism and thrombosis of unspecified subclavian vein (principal)
CPT/HCPCS: 71275

== ENCOUNTER 2023-03-15 10:03 | Outpatient (RCR) | payer BC ==
[~2023-03-15 10:03] MED LIST changes: -HOLD METFORMIN - RECEIVED CONTRAST 20 ML VIAL IV SCH; -IOHEXOL 350 MG/ML 100 ML (OMNIPAQUE 350) VIAL IV ONE; -NS 100 ML (IVPB) BAG IV ONE
== END 2023-03-25 | disposition home or self-care (01) ==
PROVIDERS: ATTEND Radiology Vascular & Interventional Radiology
DX: G54.0 Brachial plexus disorders (principal)

== ENCOUNTER 2023-04-16 15:43 | Outpatient (RCR) | payer BC | END 2023-04-25 | disposition home or self-care (01) | PROVIDERS: ATTEND Radiology Vascular & Interventional Radiology | DX: G54.0 Brachial plexus disorders (principal); Z98.890 Other specified postprocedural states ==

== ENCOUNTER 2023-06-14 13:00 | Outpatient (RCR) | payer BC | END 2023-06-25 | disposition home or self-care (01) | PROVIDERS: ATTEND Radiology Vascular & Interventional Radiology | DX: G54.0 Brachial plexus disorders (principal) ==

== ENCOUNTER 2023-07-10 14:13 | Outpatient (RCR) | payer BC | END 2023-07-25 | disposition home or self-care (01) | PROVIDERS: ATTEND Radiology Vascular & Interventional Radiology | DX: G54.0 Brachial plexus disorders (principal) ==